=== PATIENT | female | born 1955 | race Caucasian/White ===

== ENCOUNTER 2016-11-05 13:35 | Emergency (ER) | payer BC ==
[2016-11-05 13:55] VITALS: BP 120/82; PULSE 72; RESP 16; TEMP 97.7; O2SAT 96
--- NOTE | 2016-11-05 14:05 | UCPHY ---
H & P Patient Type: New Chief Complaint Nursing Narrative: pt states thumb pain for the past 2 weeks. pt denies trauma, states that she was drying off her dog when pain started. no swelling or bruising noted upon triage, but tender upon palpation Time Seen by Provider: 11/05/16 13:56 HPI/ROS: CHIEF COMPLAINT: Thumb pain HISTORY OF PRESENT ILLNESS: The patient is a 61-year-old female who comes to the Urgent Care complaining of right thumb pain. She states that she thought she injured it while drying off her dog 2 weeks ago. It has been achy ever since and occasionally has shooting pain. It primarily hurts when she laterally moves her thumb. It hurts lateral to the thenar eminence. She does not have any significant pain on the medial or ulnar aspect of the thumb or MCP joint. No significant bruising or swelling. No deformity. Normal range of motion. She classifies her symptoms as moderate. REVIEW OF SYSTEMS: Constitutional: denies: chills, fever, recent illness, recent injury EENTM: denies: blurred vision, double vision, nose congestion Respiratory: denies: cough, shortness of breath Cardiac: denies: chest pain, irregular heart rate, lightheadedness, palpitations Gastrointestinal/Abdominal: denies: abdominal pain, diarrhea, nausea, vomiting, blood streaked stools Genitourinary: denies: dysuria, frequency, hematuria, pain Musculoskeletal: denies: joint pain, muscle pain Skin: denies: lesions, rash, jaundice, bruising Neurological: denies: headache, numbness, paresthesia, tingling, dizziness, weakness Hematologic/Lymphatic: denies: blood clots, easy bleeding, easy bruising Immunologic/allergic: denies: HIV/AIDS, transplant EXAM: GENERAL: Well-appearing, well-nourished and in no acute distress. HEAD: Atraumatic, normocephalic. EYES: Pupils equal round and reactive to light, extraocular movements intact, sclera anicteric, conjunctiva are normal. ENT: TMs normal, nares patent, oropharynx clear without exudates. Moist mucous membranes. NECK: Normal range of motion, supple without lymphadenopathy or JVD. LUNGS: Breath sounds clear to auscultation bilaterally and equal. No wheezes rales or rhonchi. HEART: Regular rate and rhythm without murmurs, rubs or gallops. ABDOMEN: Soft, nontender, normoactive bowel sounds. No guarding, no rebound. No masses appreciated. BACK: No CVA tenderness, no spinal tenderness, step-offs or deformities EXTREMITIES: Normal range of motion and sensation. Normal pulses. Normal capillary refill. Pain with lateral movement of her thumb. No pain with flexion or extension. No pain with medial or ulnar movement. No tenderness to palpation. No visible swelling or deformity. NEUROLOGICAL: Cranial nerves II through XII grossly intact. Normal speech, normal gait. 5/5 strength, normal movement in all extremities, normal sensation PSYCH: Normal mood, normal affect. SKIN: Warm, dry, normal turgor, no visible rashes or lesions. Source: Patient Exam Limitations: No limitations - Medical/Surgical History Hx Asthma: No Hx Chronic Respiratory Disease: No Hx Diabetes: No Hx Cardiac Disease: No Hx Renal Disease: No Hx Cirrhosis: No Hx Alcoholism: No Hx HIV/AIDS: No Hx Splenectomy or Spleen Trauma: No Other PMH: hypothyroid,anxiety,DCIS (with Bilateral breast mastectomy), ovaectomy. - Family History Significant Family History: No pertinent family hx - Social History Smoking Status: Never smoked Alcohol Use: None Drug Use: None Constitutional: Initial Vital Signs Temperature (C) 36.5 C 11/05/16 13:51 Heart Rate 72 11/05/16 13:51 Respiratory Rate 16 11/05/16 13:51 Blood Pressure 120/82 H 11/05/16 13:51 O2 Sat (%) 96 11/05/16 13:51 O2 Delivery Mode Room Air Allergies/Adverse Reactions: No Known Allergies Allergy (Unverified 01/08/10 08:23) Home Medications: Medication Instructions Recorded Famciclovir [Famvir 500 mg] 500 mg PO Q8 7 Days 01/08/10 Hydrocodone Bit/Acetaminophen 1 - 2 tab PO Q4-6PRN PRN #15 tab 01/08/10 [LORTAB5/500] Synthroid 01/08/10 Medical Decision Making - Diagnostics Imaging: X-ray: Hand x-ray was obtained. I viewed the images myself on the PACS system. My interpretation of the images is: negative for acute disease . The radiologist interpretation is pending. Procedures: Procedure: Splint placement. A Velcro thumb cock-up splint was applied. After application of the splint I returned and re-examined the patient. The splint was adequately immobilizing the joint and distal to the splint the patient's circulation and sensation was intact. ED Course/Re-evaluation: We discussed the x-ray results. The patient is relieved. We discussed anti- inflammatories and rest. I will provide her brace that she can take off and on. I will have her follow up with Hand surgery. She understands and agrees with this plan. She asked about cortisone injections. I will defer to the hand surgeon for this. Differential Diagnosis: Partial list of the Differential diagnosis considered include but were not limited to; tendinitis, gamekeeper's thumb, arthritis, bursitis and although unlikely based on the history and physical exam, I also considered fracture, dislocation, infection. I discussed these differential diagnoses and the plan with the patient as well as the usual and expected course. The patient understands that the diagnosis is provisional and that in medicine we are not always correct and that further workup is often warranted. Usual and customary warnings were given. All of the patient's questions were answered. The patient was instructed to return to the emergency department should the symptoms at all worsen or return, otherwise to followup with the physician as we discussed. Departure - Departure Disposition: Home, Routine, Self-Care Clinical Impression: Tendinitis Condition: Fair Instructions: Tendinitis (ED) Referrals: NONE *PRIMARY CARE P,. [Primary Care Provider] - As per Instructions Yaima Adams MD [Medical Doctor] - As per Instructions - PQRS PQRS Measurement: 134: Depression screening and followup, PRIME -PHQ2 (12 years and older) Over the last 2 weeks, how often have you been bothered by any of the following problems? 1. Feeling down, depressed, or hopeless? 2. Little interest or pleasure in doing things? Patient answered no to both 1 and 2 130: Documentation of medications. Reviewed all patient medications, doses, route and frequency. 226: Do you smoke? No. 47: 65 and older: Advanced care planning. Patient designates surrogate decision maker as spouse . Patient has advanced directive. 51: 18 years old and older with diagnosis of COPD, spirometry performance. Spirometry not performed; equipment not available. 52: 18 years old and older with COPD and symptoms of COPD or FEV1<60% predicted prescribed a B Agonist. Not applicable
== END 2016-11-05 14:29 | disposition home or self-care (01) ==
LOC: CED 13:35
DX: M65.841 Other synovitis and tenosynovitis, right hand (principal); M79.644 Pain in right finger(s)
CPT/HCPCS: 73130-PO; G0463-PO; L3807